=== PATIENT | male | born 1965 | race Caucasian/White ===

== ENCOUNTER 2017-09-14 12:51 | Emergency (ER) | payer OTHER ==
[~2017-09-14] VITALS: Ht 157.5 cm; Wt 73.5 kg
[2017-09-14 13:15] VITALS: BP 142/84
[2017-09-14] MEDS ORDERED: HYDROCODONE/APAP 10/325MG 1 EA TABLET ONE (14:22)
[2017-09-14] MEDS ORDERED: IBUPROFEN 600 MG TABLET PO ONE ×2 (14:22→14:30)
[2017-09-14] MEDS ORDERED: HYDROCODONE/APAP 10/325MG 1 EA TABLET PO ONE (14:30)
== END 2017-09-14 16:09 | disposition home or self-care (01) ==
LOC: ER 13:05
DX: S92.002A Unspecified fracture of left calcaneus, initial encounter for closed fracture (principal); W11.XXXA Fall on and from ladder, initial encounter; Y93.89 Activity, other specified; Y92.89 Other specified places as the place of occurrence of the external cause; Y99.8 Other external cause status
CPT/HCPCS: 73630-TC; A4606; Z7610